=== PATIENT | male | born 1965 | race Caucasian/White ===

== ENCOUNTER 2023-02-14 13:05 | Emergency (ER) | payer OTHER, SELFPAY ==
[2023-02-14] VITALS (16 sets, daily range): BP systolic 119–159; BP diastolic 72–95; PULSE 76–115; RESP 13–26; TEMP 37.1; O2SAT 93–100; BMI 26.4
--- NOTE | 2023-02-14 13:12 | XR_ITS ---
[address] [address] Patient Name: OG JACINTO MRN: [id number] date: 1965 Sex: M Assigned Patient Location: ER Current Patient Location: ER Accession/Order Number: [id number] Exam Date: 02/14/2023 13:30 Report Date: 02/14/2023 13:52 At the request of: GUSTAVO FERNANDEZ Procedure: XR chest 1V EXAM: XR chest 1V HISTORY: pain COMPARISON: None. TECHNIQUE: AP view of the chest. FINDINGS: The cardiomediastinal silhouette is normal. The lungs are clear. There is no pneumothorax. No pleural effusion is noted. The osseous structures are intact. IMPRESSION: No acute cardiopulmonary process. Electronically authenticated by: KATHERINE JACOBS Date: 02/14/2023 13:52
--- NOTE | 2023-02-14 13:12 | ECG_ITS ---
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
[2023-02-14 13:22] LABS: Basophils Percent Auto 0.3 % (0.2-2.0); Hematocrit 42.3 % (42.0-54.0); Hemoglobin 15.1 g/dL (14.0-18.0); Lymphocytes Absolute Auto 1.2 10^3/uL (1.2-3.8); Mean Corpuscular HGB Conc 35.7 g/dL (29.9-35.2); Mean Corpuscular Hemoglobin 28.5 pg (25.9-34.0); Mean Platelet Volume 9.4 fL (9.5-13.5); Monocytes Absolute Auto 0.3 10^3/uL (0.3-0.8); Monocytes Percent Auto 3.2 % (1.7-12.0); Neutrophils Absolute Auto 8.5 10^3/uL (1.4-6.5); Neutrophils Percent Auto 83.5 % (43.0-75.0); Platelet Count 281 10^3/uL (150-450); Red Blood Count 5.29 10^6/uL (4.70-6.10); Red Cell Distribution Width 13.2 % (11.0-15.0); White Blood Count 10.1 10^3/uL (4.0-11.0)
[2023-02-14] MEDS: MORPHINE SULFATE 2 MG/ML SYRINGE IV (13:26)
[2023-02-14 13:31] LABS: Magnesium 1.5 mg/dL (1.8-2.4)
[2023-02-14 13:45] LABS: Anion Gap 19.3; BUN Creatinine Ratio 9.5; Calcium 9.7 mg/dL (8.5-10.1); Carbon Dioxide 18.9 mmol/L (21.0-32.0); Chloride 103 mmol/L (98-107); Estimated GFR (African America >60 (>=60); Estimated GFR (Non-African Ame 53 (>=60); Glucose 128 mg/dL (74-106); Potassium 3.2 mmol/L (3.5-5.1); Sodium 138 mmol/L (136-145); Troponin I High Sensitivity <4.0 pg/mL (4.0-76.1)
[2023-02-14] MEDS: 0.9 % SODIUM CHLORIDE 1,000 ML 1000 ML IV (13:59)
--- NOTE | 2023-02-14 14:00 | ED.CHESTPAI1 ---
HPI - Chest Pain General Chief Complaint: Chest Pain Stated Complaint: HEART ATTACK SYMPTOMS, SOB, NUMBNESS L ARM Time Seen by Provider: 02/14/23 13:12 Source: patient Mode of arrival: Wheelchair History of Present Illness HPI narrative: 57-year-old male past medical history depression presents for both his arms tingling and shortness of breath that started two hours ago. He complains of midsternal chest pain and nausea, but states that he has had this pain for multiple years. He states that he has followed up with the family doctor regarding this pain and nothing has been found, but has not seen a GI. Denies radiation of pain or alleviating or aggravating symptoms. This has never happened before.he states that he feels like he is outside of his body.He states that he had a bad day yesterday as well as anniversary of his mother passing away.he states that he was just sitting when the symptoms started.denies cough, dizziness, headache, abd or back pain, v/d, CP Treatment prior to arrival: Reports none Risk Factors Coronary artery disease risk factors: none Related Data Allergies Allergy/AdvReac Type Severity Reaction Status Date / Time amitriptyline Allergy Severe Verified 02/14/23 13:30 butorphanol [From Stadol] Allergy Severe Verified 02/14/23 13:30 cephalexin [From Keflex] Allergy Severe Verified 02/14/23 13:30 ketorolac [From Toradol] Allergy Severe Verified 02/14/23 13:30 melatonin Allergy Severe Verified 02/14/23 13:13 orphenadrine [From Norflex] Allergy Severe Verified 02/14/23 13:30 Penicillins Allergy Severe Verified 02/14/23 13:13 Review of Systems ROS Status of ROS 10 or more systems reviewed and unremarkable except as noted in history and below [facility] Medical History (Updated 02/14/23 @ 19:02 by SIMI Mariano) Exam Narrative Exam Narrative: general: A&Ox3, anxious, talking in full an complete sentences skin: warm, dry, intact head: normocephalic, atraumatic eyes: PERRLA, EOMI, normal conjunctiva nose: nares patent neck: supple, trachea midline cardiac: +S1/S1. no murmur respiratory: lungs CTA, non-labored, no wheezing, no retractions extremities: FROM x 4, strength +5/5, no edema neuro: A&Ox3 psych: appropriate mood and affect, cooperative Constitutional Vital Signs - 24 hr 02/14/23 13:09 02/14/23 13:15 02/14/23 13:10 Temperature 98.8 F Pulse Rate 76 Pulse Rate [Monitor] 90 Respiratory Rate 26 H 16 Blood Pressure 159/85 H Blood Pressure [Left Arm] 158/95 H Pulse Oximetry 100 100 100 Oxygen Delivery Method Room Air Room Air 02/14/23 14:10 02/14/23 13:10 02/14/23 14:03 Temperature Pulse Rate 76 76 Pulse Rate [Monitor] Respiratory Rate 15 20 Blood Pressure 159/85 H 139/93 H Blood Pressure [Left Arm] Pulse Oximetry 99 99 99 Oxygen Delivery Method Room Air 02/14/23 14:03 02/14/23 14:30 02/14/23 14:30 Temperature Pulse Rate 82 82 84 Pulse Rate [Monitor] Respiratory Rate 13 16 20 Blood Pressure 139/93 H 136/84 H 136/84 H Blood Pressure [Left Arm] Pulse Oximetry 98 98 98 Oxygen Delivery Method 02/14/23 15:00 02/14/23 15:17 02/14/23 16:18 Temperature Pulse Rate 87 Pulse Rate [Monitor] 79 104 H Respiratory Rate 16 14 16 Blood Pressure 149/81 H Blood Pressure [Left Arm] 149/81 H 148/94 H Pulse Oximetry 98 98 96 Oxygen Delivery Method Room Air Room Air 02/14/23 16:31 02/14/23 15:00 02/14/23 15:30 Temperature Pulse Rate 94 H 96 H Pulse Rate [Monitor] 101 H Respiratory Rate 16 14 15 Blood Pressure 149/81 H 151/91 H Blood Pressure [Left Arm] 129/89 H Pulse Oximetry 95 97 96 Oxygen Delivery Method Room Air 02/14/23 16:00 02/14/23 16:30 02/14/23 17:00 Temperature Pulse Rate 102 H 104 H 115 H Pulse Rate [Monitor] Respiratory Rate 23 18 20 Blood Pressure 148/94 H 129/89 H 152/90 H Blood Pressure [Left Arm] Pulse Oximetry 96 93 L 95 Oxygen Delivery Method 02/14/23 17:51 02/14/23 18:39 Temperature Pulse Rate Pulse Rate [Monitor] 102 H 103 H Respiratory Rate 20 16 Blood Pressure Blood Pressure [Left Arm] 119/72 131/85 H Pulse Oximetry 96 96 Oxygen Delivery Method Room Air Room Air Course Vital Signs Vital signs: Vital Signs Temperature 98.8 F 02/14/23 13:09 Pulse Rate 90 02/14/23 13:09 Respiratory Rate 26 H 02/14/23 13:09 Blood Pressure 158/95 H 02/14/23 13:09 Pulse Oximetry 100 02/14/23 13:09 Oxygen Delivery Method Room Air 02/14/23 13:09 Temperature 98.8 F 02/14/23 13:09 Pulse Rate 103 H 02/14/23 18:39 Respiratory Rate 16 02/14/23 18:39 Blood Pressure 131/85 H 02/14/23 18:39 Pulse Oximetry 96 02/14/23 18:39 Oxygen Delivery Method Room Air 02/14/23 18:39 MDM - Chest Pain MDM Narrative Medical decision making narrative: EKG sinus rhythm with an incomplete right bundle branch block at a rate of 91. No previous EKGs to compare.he did not take aspirin today and is given aspirin 324 mg p.o. Potassium 3.1 and orally repleted and magnesium 1.5 and given 2 g IV. Morphine ordered by Dr. Lyons. no acute signs of final read of chest x-ray.creatinine 1.37. Previous labs are from 2016 at this time was normal. Further questioning, patient states that he was out in the sun all day yesterday and only drink Mountain Dew and was sweating profusely. Likely what caused his dehydration and electrolyte abnormalities. He states that he does not drink any water and he is instructed to increase his water intake and to use electrolytes if he is outside in the heat. He states that the morphine has made him feel fatigued. Repeat EKG sinus rhythm with a incomplete right bundle branch block at a rate of 85. Patient has been here 3 hours and vomited x1 and will be given Zofran. Negative delta troponin. Upon recheck, he states that vomiting improved the chest pain. Heart score 3. No acute findings on final read of CTA chest. Pain is reproducible under the sternum and has been ongoing for years and unlikely ACS. He has had 2 negative EKGs and 2 negative troponins. F/u with PCP and GI. afebrile, not tachycardic, not hypoxic, non toxic appearing and ambulating at baseline and hemodynamically stable to be d/c. answered all questions. pt in agreement with tx. educated when to return to ER. Medical Records Data Attestation: I reviewed the patient's medical records. Lab Data Attestation: I reviewed the patient's lab results. Labs: Lab Results 02/14/23 02/14/23 Range/Units 13:17 16:36 WBC 10.1 (4.0-11.0) 10^3/uL RBC 5.29 (4.70-6.10) 10^6/uL Hgb 15.1 (14.0-18.0) g/dL Hct 42.3 (42.0-54.0) % MCV 80.0 (80.0-94.0) fL MCH 28.5 (25.9-34.0) pg MCHC 35.7 H (29.9-35.2) g/dL RDW 13.2 (11.0-15.0) % Plt Count 281 (150-450) 10^3/uL MPV 9.4 L (9.5-13.5) fL Neut % (Auto) 83.5 H (43.0-75.0) % Lymph % (Auto) 12.0 L (20.5-60.0) % [place] % (Auto) 3.2 (1.7-12.0) % Eos % (Auto) 0.0 L (0.9-7.0) % Baso % (Auto) 0.3 (0.2-2.0) % Neut # (Auto) 8.5 H (1.4-6.5) 10^3/uL Lymph # (Auto) 1.2 (1.2-3.8) 10^3/uL [place] # (Auto) 0.3 (0.3-0.8) 10^3/uL Eos # (Auto) 0.0 (0.0-0.7) 10^3/uL Baso # (Auto) 0.0 (0.0-0.1) 10^3/uL Abs Immat Gran (auto) 0.10 H (0.00-0.03) 10^3/uL Imm/Tot Granulo (auto) 1.0 H (0.0-0.5) % Sodium 138 (136-145) mmol/L Potassium 3.2 L (3.5-5.1) mmol/L Chloride 103 (98-107) mmol/L Carbon Dioxide 18.9 L (21.0-32.0) mmol/L Anion Gap 19.3 BUN 13.0 (7.0-18.0) mg/dL Creatinine 1.37 H (0.70-1.30) mg/dL Est GFR ( Amer) >60 (>=60) Est GFR (Non-Af Amer) 53 L (>=60) BUN/Creatinine Ratio 9.5 Glucose 128 H (74-106) mg/dL Calcium 9.7 (8.5-10.1) mg/dL Magnesium 1.5 L (1.8-2.4) mg/dL Troponin I High Sens <4.0 L 4.2 (4.0-76.1) pg/mL NT-Pro-B Natriuret Pep 32.0 (<=900.0) pg/mL ECG Data Prior ECG tracings: not available for review Heart Score History: Slightly/Non-Suspicious ECG: NS Repolarization Age: >45-<65 years Risk Factors: 1 or 2 Risk Factors Troponin: <Normal Limit Total Heart Score Recommendations & Risks:: 3 Discharge Plan Discharge Chief Complaint: Chest Pain Clinical Impression: TAMIR (acute kidney injury), Hypokalemia, Hypomagnesemia, Dehydration, mild Chest pain Qualifiers: Chest pain type: unspecified Qualified Code(s): R07.9 - Chest pain, unspecified Patient Disposition: Home, Self-Care Time of Disposition Decision: 19:01 Condition: Good Mode of Transportation: Private Vehicle Instructions: Chest Pain (ED), Acute Kidney Injury (DC), Hypokalemia (ED), Hypomagnesemia (ED) Stand Alone Forms: Portal Instructions Referrals: Jodie Sanders MD [Primary Care Provider] - 1 week
[2023-02-14] MEDS: POTASSIUM BICARBONATE/CIT 25 MEQ TABLET EFF PO (14:07)
[2023-02-14] MEDS: POTASSIUM CHLORIDE 10 MEQ ER TABLET 40 MEQ PO (14:53)
--- NOTE | 2023-02-14 15:07 | ECG_ITS ---
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
--- NOTE | 2023-02-14 16:21 | PC.NURSE ---
Vomited clear with a few white specks.
[2023-02-14] MEDS: ONDANSETRON PF 4 MG/2 ML VIAL IV (16:27)
[2023-02-14 17:06] LABS: Troponin I High Sensitivity 4.2 pg/mL (4.0-76.1)
[2023-02-14] MEDS: ASPIRIN 81 MG TAB.CHEW 324 MG PO (17:09)
--- NOTE | 2023-02-14 18:05 | CT_ITS ---
[address] [address] Patient Name: OG JACINTO MRN: [id number] date: 1965 Sex: M Assigned Patient Location: ER Current Patient Location: Accession/Order Number: [id number] Exam Date: 02/14/2023 17:58 Report Date: 02/14/2023 18:19 At the request of: ANGELIKA CASAS Procedure: CT angio chest CT angio chest HISTORY: cp COMPARISON: None. TECHNIQUE: CT chest with intravenous contrast was performed with timing for the evaluation for pulmonary arteries. Multiplanar reformats were performed. MIP (maximum intensity projection) images or 3D post processing was performed. Dose reduction techniques were achieved by using automated exposure control and/or adjustment of mA and/or kV according to patient size and/or use of iterative reconstruction technique. FINDINGS: Lungs: No consolidation, mass, or effusion. Airways: Normal. Mediastinum: No adenopathy. Aorta: No aneurysm. Cardiac: Normal size. No pericardial effusion. Pulmonary vasculature: Diagnostic opacification of pulmonary arteries without evidence of pulmonary embolus. Normal morphology. Bones: No acute bony abnormality. Axilla: No adenopathy. Thyroid gland: No abnormality demonstrated on provided imaging. Soft tissues: Unremarkable. Upper abdomen: Unremarkable. Additional findings: None. IMPRESSION:No evidence of pulmonary embolus or acute intrathoracic abnormality. Electronically authenticated by: SRIRAM VARGHESE Date: 02/14/2023 18:19
== END 2023-02-14 19:41 | disposition home or self-care (01) ==
PROVIDERS: Physician Assistant; Emergency Provider Emergency Medicine Emergency Medical Services; PCP Specialist
DX: N17.9 Acute kidney failure, unspecified (principal); E87.6 Hypokalemia; E83.42 Hypomagnesemia; E86.0 Dehydration; I45.10 Unspecified right bundle-branch block; R07.9 Chest pain, unspecified; F32.A Depression, unspecified
CPT/HCPCS: 36415; 71045; 71275; 80048; 83735; 83880; 84484; 85025; 93005; 96374; 96375; 99285; Q9967

== ENCOUNTER 2023-09-02 08:32 | Emergency (ER) | payer OTHER, SELFPAY ==
[2023-09-02] VITALS (17 sets, daily range): BP systolic 121–136; BP diastolic 78–89; PULSE 96–117; RESP 16–20; TEMP 36.8; O2SAT 93–98; BMI 31.5
--- NOTE | 2023-09-02 08:47 | ED.GENADUL1 ---
HPI - General Adult General Chief complaint: Headache Stated complaint: headache Time Seen by Provider: 09/02/23 08:38 Source: patient Mode of arrival: walk-in Limitations: no limitations History of Present Illness HPI narrative: 58-year-old male presents for headache that he's had for two days continuously. No trauma. No localized weakness or difficulty with speech. He states he hasn't had a headache in about fifteen years. The entire head hurts. Related Data Previous Rx's Medication Instructions Recorded lkbyzspfrx-qbyirerudiaso-xfnxrvsh 1 cap PO Q6H PRN headache 5 days 09/02/23 50 mg-300 mg-40 mg capsule #20 caps (Fioricet) Allergies Allergy/AdvReac Type Severity Reaction Status Date / Time amitriptyline Allergy Severe Verified 02/14/23 13:30 butorphanol [From Stadol] Allergy Severe Verified 02/14/23 13:30 cephalexin [From Keflex] Allergy Severe Verified 02/14/23 13:30 ketorolac [From Toradol] Allergy Severe Verified 02/14/23 13:30 melatonin Allergy Severe Verified 02/14/23 13:13 orphenadrine [From Norflex] Allergy Severe Verified 02/14/23 13:30 Penicillins Allergy Severe Verified 02/14/23 13:13 Review of Systems ROS Narrative A ten point review of systems is negative except as noted above. [facility] Medical History (Updated 09/02/23 @ 10:58 by Eleazar Randall MD) Chest pain ?R07.9 - Chest pain, unspecified (ICD-10) Social History Smoking status: Never smoker Exam Narrative Exam Narrative: Nurses note and vital signs reviewed and patient is not hypoxic. General: The patient it is laying in a darkened room and is in no apparent distress. Skin: Warm, dry, no pallor noted. There is no rash noted. Head: Normocephalic, atraumatic Eye: Normal conjunctiva, no drainage ENT: Mouth without vesicles. Ear canals patent. neck supple, no nuchal rigidity Cardiovascular: Regular Rate and Rhythm Respiratory: Patient is in no distress, no accessory muscle use, lungs are clear to auscultation, no wheezing, rales or rhonchi Back: non-tender GI: soft and nontender Musculoskeletal: The patient has no evidence of calf tenderness, no pitting edema, symmetrical pulses noted bilaterally Neurological: A&O x4, normal speech; upper and lower extremity strength intact Psychiatric: Cooperative Constitutional Vital Signs, click to edit/add: Last Vital Signs Temp 98.3 F 09/02/23 08:37 Pulse 96 H 09/02/23 10:32 Resp 16 09/02/23 10:05 BP 125/78 09/02/23 10:30 Pulse Ox 94 L 09/02/23 10:30 O2 Del Method Room Air 09/02/23 08:37 Course Vital Signs Vital signs: Vital Signs Temperature 98.3 F 09/02/23 08:37 Pulse Rate 117 H 09/02/23 08:37 Respiratory Rate 20 09/02/23 08:37 Blood Pressure 136/89 09/02/23 08:37 Pulse Oximetry 98 09/02/23 08:37 Oxygen Delivery Method Room Air 09/02/23 08:37 Temperature 98.3 F 09/02/23 08:37 Pulse Rate 96 H 09/02/23 10:32 Respiratory Rate 16 09/02/23 10:05 Blood Pressure 125/78 09/02/23 10:30 Pulse Oximetry 94 L 09/02/23 10:30 Oxygen Delivery Method Room Air 09/02/23 08:37 Medical Decision Making MDM Narrative Medical decision making narrative: the patient's workup is negative including CAT scan of his brain. He feels much better now and is able to be discharged home. Treatment diagnosis and follow-up were discussed with the patient. Differential Diagnosis Differential Diagnosis: tension headache, sinusitis, intracranial hemorrhage Lab Data Lab results reviewed: Yes I reviewed the patient's lab results Labs: Lab Results 09/02/23 Range/Units 08:43 WBC 7.2 (4.0-11.0) 10^3/uL RBC 4.49 L (4.70-6.10) 10^6/uL Hgb 13.2 L (14.0-18.0) g/dL Hct 39.8 L (42.0-54.0) % MCV 88.6 (80.0-94.0) fL MCH 29.4 (25.9-34.0) pg MCHC 33.2 (29.9-35.2) g/dL RDW 14.2 (11.0-15.0) % Plt Count 239 (150-450) 10^3/uL MPV 9.4 L (9.5-13.5) fL Neut % (Auto) 71.1 (43.0-75.0) % Lymph % (Auto) 12.8 L (20.5-60.0) % [place] % (Auto) 14.5 H (1.7-12.0) % Eos % (Auto) 0.3 L (0.9-7.0) % Baso % (Auto) 0.6 (0.2-2.0) % Neut # (Auto) 5.1 (1.4-6.5) 10^3/uL Lymph # (Auto) 0.9 L (1.2-3.8) 10^3/uL [place] # (Auto) 1.0 H (0.3-0.8) 10^3/uL Eos # (Auto) 0.0 (0.0-0.7) 10^3/uL Baso # (Auto) 0.0 (0.0-0.1) 10^3/uL Abs Immat Gran (auto) 0.05 H (0.00-0.03) 10^3/uL Imm/Tot Granulo (auto) 0.7 H (0.0-0.5) % Sodium 136 (136-145) mmol/L Potassium 3.6 (3.5-5.1) mmol/L Chloride 101 (98-107) mmol/L Carbon Dioxide 21.5 (21.0-32.0) mmol/L Anion Gap 17.1 BUN 10.0 (7.0-18.0) mg/dL Creatinine 1.19 (0.70-1.30) mg/dL Est GFR ( Amer) >60 (>=60) Est GFR (Non-Af Amer) >60 (>=60) BUN/Creatinine Ratio 8.4 Glucose 132 H (74-106) mg/dL Calcium 9.0 (8.5-10.1) mg/dL Imaging Data CT scan - head: Radiologist's impression: ITS Impressions Head CT 09/02/23 08:52 IMPRESSION: 1. No acute cranial hemorrhage, mass, or suspicious findings. 2. Old lacunar infarction within left basal ganglia. Correlate with patient history. 3. Retained secretions within paranasal sinuses, but no convincing acute or chronic sinusitis. Electronically authenticated by: NOAM ARAUJO Date: 09/02/2023 09:27 Discharge Plan Discharge Chief Complaint: Headache Clinical Impression: Headache Patient Disposition: Home, Self-Care Time of Disposition Decision: 10:58 Condition: Good Mode of Transportation: Private Vehicle Prescriptions / Home Meds: New bszshqqtzh-bkcqaydpqclgy-fgnz [Fioricet] 50-300-40 mg capsule 1 cap PO Q6H PRN (Reason: headache) 5 Days Qty: 20 0RF Instructions: Acute Headache (ED) Stand Alone Forms: Portal Instructions Referrals: Jodie Sanders MD [Primary Care Provider] - 1 week
--- NOTE | 2023-09-02 08:52 | CT_ITS ---
The [address] [address] Patient Name: OG JACINTO MRN: [id number] date: 1965 Sex: M Assigned Patient Location: ER Current Patient Location: ER Accession/Order Number: [id number] Exam Date: 09/02/2023 09:00 Report Date: 09/02/2023 09:27 At the request of: NERI DEUTSCH Procedure: CT head/brain wo con EXAMINATION: CT head/brain wo con HISTORY: [place] COMPARISON: No relevant comparison available. TECHNIQUE: Axial CT images were obtained without IV contrast. Dose reduction techniques were achieved by using automated exposure control and/or adjustment of mA and/or kV according to patient size and/or use of iterative reconstruction technique. FINDINGS: BRAIN: Old lacunar infarction within left basal ganglia. No edema, hemorrhage, mass, acute infarction, or inappropriate atrophy. CSF SPACES: No hydrocephalus, subarachnoid hemorrhage, or mass. Appropriate for age. SKULL: No fracture, mass, or other significant visible lesion. SINUSES: Retained secretions within the paranasal sinuses. ORBITS: No appreciable abnormality on the limited views. OTHER: Negative CT/CT head/brain wo con IMPRESSION: 1. No acute cranial hemorrhage, mass, or suspicious findings. 2. Old lacunar infarction within left basal ganglia. Correlate with patient history. 3. Retained secretions within paranasal sinuses, but no convincing acute or chronic sinusitis. Electronically authenticated by: NOAM ARAUJO Date: 09/02/2023 09:27
[2023-09-02] MEDS: ONDANSETRON PF 4 MG/2 ML VIAL IV (09:05)
[2023-09-02] MEDS: MORPHINE SULFATE 4 MG/ML VIAL IV ×2 (09:05→09:40)
[2023-09-02 09:06] LABS: Basophils Percent Auto 0.6 % (0.2-2.0); Eosinophils Percent Auto 0.3 % (0.9-7.0); Hematocrit 39.8 % (42.0-54.0); Hemoglobin 13.2 g/dL (14.0-18.0); Immature Granulocytes Abs Auto 0.05 10^3/uL (0.00-0.03); Immature Granulocytes Pct Auto 0.7 % (0.0-0.5); Lymphocytes Absolute Auto 0.9 10^3/uL (1.2-3.8); Lymphocytes Percent Auto 12.8 % (20.5-60.0); Mean Corpuscular HGB Conc 33.2 g/dL (29.9-35.2); Mean Corpuscular Hemoglobin 29.4 pg (25.9-34.0); Mean Corpuscular Volume 88.6 fL (80.0-94.0); Mean Platelet Volume 9.4 fL (9.5-13.5); Monocytes Percent Auto 14.5 % (1.7-12.0); Neutrophils Absolute Auto 5.1 10^3/uL (1.4-6.5); Neutrophils Percent Auto 71.1 % (43.0-75.0); Platelet Count 239 10^3/uL (150-450); Red Blood Count 4.49 10^6/uL (4.70-6.10); Red Cell Distribution Width 14.2 % (11.0-15.0); White Blood Count 7.2 10^3/uL (4.0-11.0)
[2023-09-02 09:14] LABS: Anion Gap 17.1; BUN Creatinine Ratio 8.4; Carbon Dioxide 21.5 mmol/L (21.0-32.0); Chloride 101 mmol/L (98-107); Estimated GFR (African America >60 (>=60); Estimated GFR (Non-African Ame >60 (>=60); Glucose 132 mg/dL (74-106); Potassium 3.6 mmol/L (3.5-5.1); Sodium 136 mmol/L (136-145)
== END 2023-09-02 11:07 | disposition home or self-care (01) ==
PROVIDERS: Emergency Provider Emergency Medicine; PCP Specialist
DX: R51.9 Headache, unspecified (principal)
CPT/HCPCS: 36415; 70450; 80048; 85025; 96374; 99285; J2270; J2405